=== PATIENT | male | born 2000 | race Hispanic/Latino ===

== ENCOUNTER 2023-01-11 12:37 | Emergency (ER) | payer OTHER ==
[~2023-01-11] VITALS: Ht 175.3 cm; Wt 72.6 kg
[2023-01-11 14:44] VITALS: BP 129/61
== END 2023-01-11 14:41 | disposition home or self-care (01) ==
LOC: EDH 12:37
DX: S41.112D Laceration without foreign body of left upper arm, subsequent encounter (principal)
CPT/HCPCS: 99281